=== PATIENT | male | born 1975 | race Caucasian/White ===

== ENCOUNTER 2022-07-18 16:00 | Emergency (ER) | payer MEDICARE, OTHER ==
[~2022-07-18] VITALS: Ht 175.3 cm; Wt 72.6 kg
[2022-07-18 16:24] LABS: HEMATOCRIT 39.3 % (36.7-47.1); MEAN CORPUSCULAR HEMOGLOBIN 30.4 uug (23.8-33.4); MEAN CORPUSCULAR VOLUME 90.4 fL (73.0-96.2); PLATELET COUNT (AUTO) 391 K/uL (152-348)
--- NOTE | 2022-07-18 16:30 | NUR ---
Pt came to ED BIB [facility]; reports pt is "suicidal and cold." Pt is A&Ox4 and cooperative. Pt's speech is unclear. Unknown cause of speech defect. Pt doesn't have many teeth. Asked Pt if he has a suicide plan. Pt stated "yes." Asked how. Unable to comprehend Pt's dialogue. Asked Pt if he was planning to hurt himself or others. Pt stated "yes" to himself. Unable to comprehend dialogue when asked about hurting others. visited and assessed Pt. Performed UA & COVID and sent to lab.
[2022-07-18 16:33] LABS: CARBON DIOXIDE 34 mmol/L (21-32); CHLORIDE 99 mmol/L (98-107); CREATININE 0.6 mg/dL (0.6-1.3); GLUCOSE 83 mg/dL (74-106); POTASSIUM 3.6 mmol/L (3.5-5.1); UREA NITROGEN, BLOOD 16 mg/dL (7-18)
[2022-07-18 16:35] LABS: *BILIRUBIN,URIN NEGATIVE (NEGATIVE); *BLOOD, URINE NEGATIVE (NEGATIVE); *CLARITY,URINE CLEAR (CLEAR); *COLOR,URINE YELLOW (YELLOW); *KETONES,URINE NEGATIVE (NEGATIVE); *UROBILINOGEN,URINE 0.2 E.U./dl (NORMAL); LEUKOCYTE ESTERASE ,URINE NEGATIVE (NEGATIVE); NITRITE, URINE NEGATIVE (NEGATIVE); PH,URINE 7.5 (5.0-8.0); UGLUCOSE NEGATIVE (NEGATIVE)
[2022-07-18 16:40] LABS: ETHANOL < 3 MG/DL (0-0)
[2022-07-18 16:47] LABS: ALANINE AMINOTRANSFERASE 22 U/L (16-63); ALKALINE PHOSPHATASE 125 U/L (50-136); ASPARTATE AMINOTRANSFERASE 20 U/L (15-37); BILIRUBIN,DIRECT < 0.1 mg/dL (0.0-0.2); BILIRUBIN,TOTAL 0.2 mg/dL (0.2-1.0); TOTAL PROTEIN, SERUM 6.8 g/dL (6.4-8.2)
[2022-07-18 16:49] LABS: ACETAMINOPHEN < 2.0 ug/mL (10-30)
[2022-07-18 16:50] LABS: *AMPHETAMINE, URINE POSITIVE (NEGATIVE); *CANNABINOID, URINE POSITIVE (NEGATIVE); *COCCAINE, URINE NEGATIVE (NEGATIVE); *PHENCYCLIDINE SCREEN,URINE NEGATIVE (NEGATIVE)
--- NOTE | 2022-07-18 17:08 | NUR ---
Contacted Kiana from [facility] about Pt. Informed Pt about him being pos. for Amphetamines. Kiana informed me that she will wait for "2-3 hourse" for pt to "sober up" from amphetamines and call back. Safety measures in place. Will continue to monitor.
--- NOTE | 2022-07-18 18:25 | NUR ---
Pt sleeping in bed, no distress noted.
[2022-07-18] MEDS ORDERED: QUETIAPINE FUMARATE 25 MG TABLET ONE (21:41)
[2022-07-18] MEDS ORDERED: LORAZEPAM 1 MG TABLET ONE (21:41)
[2022-07-18] MEDS ORDERED: LORAZEPAM 0.5 MG TABLET PO ONE (21:45)
[2022-07-18] MEDS ORDERED: QUETIAPINE FUMARATE 25 MG TABLET PO ONE (21:45)
[2022-07-19] MEDS ORDERED: QUET50TA PO (04:55)
--- NOTE | 2022-07-19 06:19 | NUR ---
Patient discharged to home in stable condition. Written and verbal after care instructions given. Patient verbalizes understanding of instructions. Stressed follow up or return to ER for worsening s/s. Pt provided with a TAP card, map of directions to [place], list of shelters and resources, food and water, out of ER with steady gait, no acute signs of distress, VSS, all belongings taken. Pt refuses all other services at this time.
[2022-07-19 06:26] VITALS: BP 118/70
== END 2022-07-19 06:26 | disposition home or self-care (01) ==
LOC: ER 16:01
DX: F20.9 Schizophrenia, unspecified (principal); F15.10 Other stimulant abuse, uncomplicated; Z20.822 Contact with and (suspected) exposure to COVID-19; Z59.00 Homelessness unspecified
CPT/HCPCS: 36415; 85025; A4663; G0480